=== PATIENT | female | born 1965 | race Caucasian/White ===

== ENCOUNTER 2016-07-14 15:54 | Emergency (ER) | payer MEDICAID ==
[2016-07-14 15:58] VITALS: BP 141/70
--- NOTE | 2016-07-14 16:27 | ER Document Report ---
HPI - HPI Pain Level: 5 Context: Patient is a 51-year-old female presents emergency Department complaining of sinus congestion and pressure for the past 7 days. Patient states she has a history of sinus infections and requiring sinus surgery. She is due to follow up with [facility] on July 21 to be evaluated for this. Patient states that she typically requires antibiotics because her sinuses are not able to drain very well on their own. She denies any fevers, chills, purulent drainage,. She does have pain to palpation over the bridge of her nose. - REPRODUCTIVE Reproductive: DENIES: : - DERM Skin Color: Normal Past Medical History - Social History Smoking Status: Former Smoker Family History: Reviewed & Not Pertinent, CAD, Malignancy Patient has suicidal ideation: No Patient has homicidal ideation: No - Past Medical History Cardiac Medical History: Reports: Hx Hypertension Denies: Hx Coronary Artery Disease, Hx Heart Attack Pulmonary Medical History: Reports: Hx Asthma, Hx Bronchitis, Hx Pneumonia - 20 yrs ago Denies: Hx COPD Neurological Medical History: Denies: Hx Cerebrovascular Accident, Hx Seizures Renal/ Medical History: Denies: Hx Peritoneal Dialysis GI Medical History: Reports: Hx Diverticulitis, Hx Hiatal Hernia Musculoskeltal Medical History: Denies Hx Arthritis Past Surgical History: Reports: Hx Abdominal Surgery, Hx Herniorrhaphy, Hx Orthopedic Surgery - L knee torn meniscus, metal plate left wrist, Hx Tubal Ligation - Immunizations Hx Diphtheria, Pertussis, Tetanus Vaccination: Yes Vertical Provider Document - CONSTITUTIONAL Agree With Documented VS: Yes Exam Limitations: No Limitations General Appearance: WD/WN, No Apparent Distress - INFECTION CONTROL TRAVEL OUTSIDE OF THE [place] IN LAST 30 DAYS: No - HEENT HEENT: Atraumatic, Normocephalic, PERRLA. negative: Pharyngeal Exudate, Pharyngeal Tenderness, Pharyngeal Erythema, Tympanic Membrane Red, Tympanic Membrane Bulging Notes: tenderness to palpation of the bridge of her nose and maxillary sinuses - NECK Neck: Normal Inspection. negative: Lymphadenopathy-Left, Lymphadenopathy-Right - RESPIRATORY Respiratory: Breath Sounds Normal, No Respiratory Distress, Chest Non-Tender. negative: Rales, Rhonchi, Wheezing O2 Sat by Pulse Oximetry: 93 - CARDIOVASCULAR Cardiovascular: Regular Rate, Regular Rhythm, No Murmur - NEURO Level of Consciousness: Awake, Alert, Appropriate Motor/Sensory: No Motor Deficit, No Sensory Deficit - DERM Integumentary: Warm, Dry, No Rash Course - Re-evaluation Re-evalutation: 07/14/16 17:34 Given patient's clinical history of sinus infections will discharge home with by mouth antibiotics and instructed to follow-up with ENT. Otherwise patient's hemoglobin stable, no acute distress and afebrile. - Vital Signs Vital signs: Temp Pulse Resp BP Pulse Ox 98.7 F 72 16 141/70 H 93 07/14/16 15:58 07/14/16 15:58 07/14/16 15:58 07/14/16 15:58 07/14/16 15:58 Discharge - Discharge Clinical Impression: Sinusitis Condition: Good Disposition: HOME, SELF-CARE Additional Instructions: [id number] medications: Mucinex DM Sinusitis You have sinusitis, an infection of the sinus cavities of the face. The sinuses are air-filled chambers which open into the inside of the nose. Bacteria and pus fill a sinus, causing pain, drainage, and fever. Sinusitis is treated with antibiotics. Often, expectorants (to thin the sinus mucous) or decongestants (to reduce swelling) are prescribed as well. Healing requires seven to 10 days. Avoid chemical fumes, pollens, dusts, and smoke (especially cigarette smoke ). Keep the air humidified in your bedroom and work area and take plenty of liquids by mouth. This condition can be serious if the infection spreads. If your symptoms worsen, or if you develop severe headache, high fever, stiff neck, or a rash, you must call the doctor or return for re-evaluation. Prescriptions: Amox Tr/Potassium Clavulanate [Augmentin 875-125 Tablet] 1 tab PO BID 7 Days Forms: Elevated Blood Pressure
[2016-07-14] MEDS ORDERED: AMOXICILLIN TR/POT CLAVULANATE 500-125 MG TAB PO ONE (16:28)
== END 2016-07-14 16:40 | disposition home or self-care (01) ==
LOC: ER 15:54
DX: J32.9 Chronic sinusitis, unspecified (principal); R09.81 Nasal congestion; I10 Essential (primary) hypertension; J45.909 Unspecified asthma, uncomplicated; Z87.891 Personal history of nicotine dependence
CPT/HCPCS: 99283; J3490

== ENCOUNTER → 2016-08-08 | Outpatient (CLI) | payer MEDICAID | LOC: RAD 11:51 | PROVIDERS: ATTEND Otolaryngology | DX: R51 Headache (principal) | CPT/HCPCS: 70486 ==

== ENCOUNTER 2016-11-13 10:16 | Day surgery (SDC) | payer MEDICAID ==
[2016-11-07 12:22] LABS: ABSOLUTE EOSINOPHILS # (AUTO) 0.1 10^3/uL (0.0-0.6); ABSOLUTE LYMPHOCYTES (AUTO) 2.4 10^3/uL (0.5-4.7); ABSOLUTE MONOCYTES (AUTO) 0.3 10^3/uL (0.1-1.4); ABSOLUTE NEUT (AUTO) 3.9 10^3/uL (1.7-8.2); BASOPHILS % (AUTO) 0.6 % (0-2); EOSINOPHILS % (AUTO) 1.7 % (0-6); HEMATOCRIT 44.6 % (36.0-47.0); HEMOGLOBIN 15.3 g/dL (12.0-15.5); HGB HCT DIFFERENCE 1.3; LYMPHOCYTES % (AUTO) 35.2 % (13-45); MEAN CORPUSCULAR HEMOGLOBIN 32.5 pg (27.0-33.4); MEAN CORPUSCULAR HGB CONC 34.3 g/dL (32.0-36.0); MEAN CORPUSCULAR VOLUME 95 fl (80-97); RED BLOOD COUNT 4.72 10^6/uL (3.72-5.28); SEGMENTED NEUTROPHILS % (AUTO) 57.5 % (42-78); WHITE BLOOD COUNT 6.7 10^3/uL (4.0-10.5)
[2016-11-07 12:40] LABS: APPEARANCE,URINE SLIGHTLY-CLOUDY; BILIRUBIN,URINE NEGATIVE (NEGATIVE); GLUCOSE, URINE NEGATIVE (NEGATIVE); KETONES,URINE NEGATIVE (NEGATIVE); LEUKOCYTE ESTERASE,URINE TRACE (NEGATIVE); NITRITE,URINE NEGATIVE (NEGATIVE); PROTEIN,URINE NEGATIVE (NEGATIVE); URINE SPECIFIC GRAVITY 1.013; UROBILINOGEN,URINE NEGATIVE mg/dL (<2.0)
[2016-11-07 12:40] LABS: ANION GAP 10 (5-19); BLOOD UREA NITROGEN 10 mg/dL (7-20); CARBON DIOXIDE 24 mmol/L (22-30); CHLORIDE 107 mmol/L (98-107); CREATININE RESULT 0.74 mg/dL (0.52-1.25); GLUCOSE 83 mg/dL (75-110); POTASSIUM 5.2 mmol/L (3.6-5.0); SODIUM 141.4 mmol/L (137-145)
--- NOTE | 2016-11-07 13:21 | RADIOLOGY REPORT (SQ) ---
EXAM DESCRIPTION: CHEST PA/LATERAL COMPLETED DATE/TIME: 11/07/2016 11:48 am REASON FOR STUDY: PRE OP COMPARISON: 01/11/2014 EXAM PARAMETERS: NUMBER OF VIEWS: two views TECHNIQUE: Digital Frontal and Lateral radiographic views of the chest acquired. RADIATION DOSE: NA LIMITATIONS: none FINDINGS: LUNGS AND PLEURA: No opacities, masses or pneumothorax. No pleural effusion. MEDIASTINUM AND HILAR STRUCTURES: No masses or contour abnormalities. HEART AND VASCULAR STRUCTURES: Heart normal size. No evidence for failure. BONES: No acute findings. HARDWARE: None in the chest. OTHER: No other significant finding. IMPRESSION: NO SIGNIFICANT RADIOGRAPHIC FINDING IN THE CHEST. TECHNICAL DOCUMENTATION: JOB ID: [id number] [employer]- All Rights Reserved
--- NOTE | 2016-11-07 17:40 | EKG REPORT ---
SEVERITY:- NORMAL ECG - SINUS RHYTHM : Confirmed by: Beena Artis MD 07-Nov-2016 17:39:46
[~2016-11-13 10:16] MED LIST: CEFAZOLIN SODIUM 2 GM in DEXTROSE 5%-WATER 100 ML IV PRN; RINGERS SOLUTION,LACTATED 1,000 ML IV PRN
[2016-11-13] MEDS ORDERED: LIDOCAINE 1% INJ-PF (10 MG/ML) 30 ML SDV ONE (10:33)
[2016-11-13] MEDS ORDERED: BUPIVACAINE HCL 0.5 % INJ/PF 30 ML SDV ONE (10:33)
[2016-11-13] MEDS ORDERED: FENTANYL CITRATE INJ/PF 100 MCG/2 ML AMPUL ONE (12:21)
[2016-11-13] MEDS ORDERED: PROPOFOL INJ 200 MG/20 ML VIAL IV ONE (12:21)
[2016-11-13] MEDS ORDERED: MIDAZOLAM 2 MG/2 ML INJ ONE (12:21)
[2016-11-13] MEDS ORDERED: FENTANYL CITRATE INJ/PF 100 MCG/2 ML AMPUL IV PRN ×3 (13:04)
[2016-11-13] MEDS ORDERED: OXYCODONE-ACETAMINOPHEN 5-325 MG TABLET PO PRN ×3 (13:04→14:46)
[2016-11-13] MEDS ORDERED: PROMETHAZINE HCL INJ 25 MG/1 ML VIAL IV PRN ×2 (13:04)
[2016-11-13] MEDS ORDERED: DIPHENHYDRAMINE HCL 50 MG/ML VIAL IV PRN (13:04)
[2016-11-13] MEDS ORDERED: MEPERIDINE HCL/PF INJ 25 MG/1 ML DISP.SYRIN IV PRN (13:04)
[2016-11-13] MEDS ORDERED: MORPHINE SULFATE 10 MG/ML INJ IV PRN ×2 (13:04→14:46)
[2016-11-13] MEDS: FENTANYL CITRATE INJ/PF 100 MCG/2 ML AMPUL ONE ×2 (14:13→14:30)
[2016-11-13] MEDS ORDERED: SUCCINYLCHOLINE CHLORIDE INJ 200 MG/10 ML VIAL ONE (14:14)
[2016-11-13] MEDS ORDERED: ONDANSETRON HCL INJ/PF 4 MG/2 ML SDV ONE (14:14)
[2016-11-13] MEDS ORDERED: DEXAMETHASONE SOD PHOSPHATE INJ 4 MG/1 ML VIAL ONE (14:14)
[2016-11-13] MEDS ORDERED: KETOROLAC TROMETHAMINE 60 MG/2 ML SDV ONE (14:14)
[2016-11-13] MEDS ORDERED: PROMETHAZINE HCL INJ 25 MG/1 ML VIAL ONE (14:36)
--- NOTE | 2016-11-13 14:45 | Operative Report ---
Operative Report PREOPERATIVE DIAGNOSIS: Painful Hardware Left Wrist w/ ORIF Distal Radius. Subcutaneous Mass Left Elbow POSTOPERATIVE DIAGNOSIS: Same OPERATION: #1. Removal of deep hardware left wrist (3 screws). #2 Wrist flexor tenolysis FCR/FPL/FDP. #3 Excision subcutaneous mass left elbow 15 mm x 15 mm SURGEON: CECILIA OSORIO ANESTHESIA: GA TISSUE REMOVED OR ALTERED: Mass Left Elbow COMPLICATIONS: Equipment for complete hardware removal not available. ESTIMATED BLOOD LOSS: Minimal PROCEDURE: Indication for above procedure: 51-year-old female who sustained a distal radius fracture in 2010 necessitating open reduction internal fixation. Patient had been doing well until the past few months she began having pain and discomfort at the site of her surgical treatment. At that point we discussed treatment options including observation versus operative intervention. Furthermore patient developed a facial mass on the ipsilateral side at her elbow and thus we discussed performing concomitant hardware removal with flexor tenolysis and excision left elbow mass. Risks and benefits were explained to the patient she verbalized understanding consented for the procedure. Procedure detail: Procedure In Detail: Patient was seen and evaluated in the preoperative holding area. The LEFT upper extremity was initialized and marked. Patient received 2g of Ancef IV for bacterial prophylaxis. Patient was taken back to the operative room where transferred to the operative table and placed under general anesthesia. Once they were adequately anesthetized a nonsterile tourniquet was placed on the upper extremity. A surgical team debriefing was performed ensuring all instrumentation was available, the surgical procedure was discussed with possible concerns reviewed. The upper extremity was prepped with chlorhexidine and alcohol and draped in a sterile fashion. A timeout was done identifying correct patient, procedure and extremity everyone in attendance agree with this and verbalized no concerns. The extremity was exsanguinated the tourniquet was inflated to 250 mmHg. Longitudinal skin incision was made over the olecranon process blunt dissection was performed isolating the mass. The mass was removed along with the underlying olecranon bursa. There was no extension deep into the surrounding fascia. The peripheral vasculature was coagulated bipolar cautery. Wound was then copiously irrigated with normal saline. Skin was closed with interrupted 3 -0 nylon suture. Patient's previous surgical skin incision was made blunt dissection was performed to the soft tissues. Radial artery was identified. The FCR tendon sheath was identified and retracted in a ulnar direction. Median nerve was identified along with the palmar cutaneous branch of the median nerve. Tenolysis of the FPL was performed. The plate was then identified there was evidence of notable irritation of the underlying FDP tendons along the ulnar aspect of the plate were identified. There is significant synovitis and possible impending rupture of the FDP tendons. The proximal screws were then removed with ease. Unfortunately with attempted removal of the distal screws I was unable to use the available screwdrivers for removal. Given location adjacent to the median nerve and flexor tendons I did not feel extraction device will be a safe option and instead elected to proceed with irrigation and closure patient will require repeat return to the OR for definitive plate removal and may require tendon transfer. Subcutaneous tissues were closed with interrupted 3-0 Monocryl suture. Skin was closed with running horizontal mattress 4-0 nylon suture. 20 cc of 0.5% Marcaine without epinephrine was injected for postoperative pain control. Wound was dressed with Xeroform 4 x 4's and a soft dressing. Sponge counts, instrument counts, needle counts counts were correct. Patient was then awoken from anesthesia. Transferred from the operating room table to the operating room stretcher. There was no intraoperative complications patient tolerated procedure well stable to PACU. Postoperative plan: Patient will require return to the operating room for definitive hardware removal and possible adjunct procedure to the FDP tendons.
--- NOTE | 2016-11-13 14:46 | PDOC DISCHARGE SUMMARY ---
Discharge Summary (SDC) - Discharge Final Diagnosis: Painful hardware left wrist Mass left elbow Date of Surgery: 11/13/16 Discharge Date: 11/13/16 Condition: Good Treatment or Instructions: Schedule Follow Up w/ Dr. Catrachito Bernstein @ [facility] to be seen in 10-14 days or as scheduled [place]: [place]: [place]: May remove dressing on postop day #3, keep incision covered and dry. Ice and elevate May begin finger range of motion attempting to make full fist. Stool softener of choice when on pain medication. Prescriptions: Oxycodone HCl/Acetaminophen [Percocet 5-325 mg Tablet] 1 - 2 tab PO ASDIR PRN # 30 tablet PRN Reason: Discharge Diet: As Tolerated Respiratory Treatments at Home: Deep Breathing/Coughing Discharge Activity: No Lifting Over 10 Pounds, No Lifting/Push/Pulling Report the Following to Your Physician Immediately: Fever over 101 Degrees, Unusual Bleeding, Redness, Swelling, Warmth, Increased Soreness
[2016-11-13 16:38] VITALS: BP 148/91
== END 2016-11-13 16:30 | disposition home or self-care (01) ==
LOC: OROUT 10:16
PROVIDERS: ATTEND Orthopaedic Surgery
PROC: 0JBH0ZZ Excision of Left Lower Arm Subcutaneous Tissue and Fascia, Open Approach (ICD-10-PCS; 2016-11-13)
PROC: 0RPP04Z Removal of Internal Fixation Device from Left Wrist Joint, Open Approach (ICD-10-PCS; principal; 2016-11-13 13:30)
PROC: 0LN60ZZ Release Left Lower Arm and Wrist Tendon, Open Approach (ICD-10-PCS; 2016-11-13 13:30)
DX: T84.398A Other mechanical complication of other bone devices, implants and grafts, initial encounter (principal); Y83.8 Other surgical procedures as the cause of abnormal reaction of the patient, or of later complication, without mention of misadventure at the time of the procedure; M79.644 Pain in right finger(s); M65.839 Other synovitis and tenosynovitis, unspecified forearm; D17.9 Benign lipomatous neoplasm, unspecified
CPT/HCPCS: 93005; 36415 ×2; 84132; 85025; 81025; 80048; 81001; 88304 ×2; 71020; 93010; 20680; 25295; 24075; J2250; J0690; J1100; J1885; J3010; J2550; J0330; J2405; J2704; 1830; J3490

== ENCOUNTER 2016-11-20 05:29 | Day surgery (SDC) | payer MEDICAID ==
[~2016-11-20 05:29] MED LIST changes: +CEFAZOLIN 2 GM/D5W RTU 2 GM/50 ML RTUPB IV PRN; -CEFAZOLIN SODIUM 2 GM in DEXTROSE 5%-WATER 100 ML IV PRN; -RINGERS SOLUTION,LACTATED 1,000 ML IV PRN
[2016-11-20] MEDS ORDERED: LIDOCAINE 1% INJ-PF (10 MG/ML) 30 ML SDV ONE (06:42)
[2016-11-20] MEDS ORDERED: BUPIVACAINE HCL 0.5 % INJ/PF 30 ML SDV ONE (06:42)
[2016-11-20] MEDS ORDERED: FENTANYL CITRATE INJ/PF 250 MCG/5 ML AMPULE ONE (07:09)
[2016-11-20] MEDS ORDERED: MIDAZOLAM 2 MG/2 ML INJ ONE (07:09)
[2016-11-20] MEDS ORDERED: ACETAMINOPHEN 100 ML IV ONE (07:10)
[2016-11-20] MEDS ORDERED: IBUPROFEN INJ 800 MG/8 ML VIAL IV ONE (07:10)
[2016-11-20] MEDS ORDERED: DEXMEDETOMIDINE INJ 80 MCG/20 ML VIAL IV ONE (07:10)
[2016-11-20] MEDS ORDERED: PROPOFOL INJ 200 MG/20 ML VIAL IV ONE (07:10)
[2016-11-20] MEDS ORDERED: ONDANSETRON HCL INJ/PF 4 MG/2 ML SDV IV PRN ×2 (07:27→08:49)
[2016-11-20] MEDS ORDERED: MEPERIDINE HCL/PF INJ 25 MG/1 ML DISP.SYRIN IV PRN (07:27)
[2016-11-20] MEDS ORDERED: PROMETHAZINE HCL INJ 25 MG/1 ML VIAL IV PRN ×2 (07:27)
[2016-11-20] MEDS ORDERED: DIPHENHYDRAMINE HCL 50 MG/ML VIAL IV PRN (07:27)
[2016-11-20] MEDS ORDERED: MORPHINE SULFATE 10 MG/ML INJ IV PRN (07:27)
[2016-11-20] MEDS ORDERED: FENTANYL CITRATE INJ/PF 100 MCG/2 ML AMPUL IV PRN ×3 (07:27)
[2016-11-20] MEDS ORDERED: KETAMINE HCL INJ 500 MG/10 ML VIAL ONE (07:37)
[2016-11-20] MEDS ORDERED: SCOPOLAMINE HYDROBROMIDE 1.5 MG PATCH.TD72 ONE (07:38)
[2016-11-20] MEDS ORDERED: ALBUTEROL SULFATE HFA (90 MCG/PUFF) 200 PUFF/8.5 GM MDI IH ONE (07:43)
[2016-11-20] MEDS ORDERED: OXYCODONE-ACETAMINOPHEN 5-325 MG TABLET PO PRN (08:49)
[2016-11-20] MEDS ORDERED: HYDROMORPHONE HCL INJ/PF 2 MG/ML AMPULE IV PRN (08:49)
--- NOTE | 2016-11-20 08:50 | PDOC DISCHARGE SUMMARY ---
Discharge Summary (SDC) - Discharge Final Diagnosis: Painful Hardware Left Wrist Date of Surgery: 11/20/16 Discharge Date: 11/20/16 Condition: Good Treatment or Instructions: Schedule Follow Up w/ Dr. Catrachito Bernstein @ [facility] to be seen in 10-14 days or as scheduled [place]: [place]: [place]: May remove dressing on postop day #3, keep incision covered and dry. Ice and elevate May begin finger range of motion attempting to make full fist. Stool softener of choice when on pain medication. Prescriptions: Oxycodone HCl/Acetaminophen [Percocet 7.5-325 mg Tablet] 1 tab PO ASDIR PRN #45 tab PRN Reason: Discharge Diet: As Tolerated Respiratory Treatments at Home: Deep Breathing/Coughing Discharge Activity: No Lifting Over 10 Pounds, No Lifting/Push/Pulling Report the Following to Your Physician Immediately: Fever over 101 Degrees, Unusual Bleeding, Redness, Swelling, Warmth, Increased Soreness
--- NOTE | 2016-11-20 08:53 | Operative Report ---
Operative Report DATE OF SURGERY: 11/20/16 PREOPERATIVE DIAGNOSIS: Painful Hardware Left Wrist w/ FDP Tenosynovitis POSTOPERATIVE DIAGNOSIS: Same OPERATION: Removal Hardware Left Wrist. FDP Tenosynovectomy SURGEON: CECILIA OSORIO ANESTHESIA: GA COMPLICATIONS: None ESTIMATED BLOOD LOSS: Minimal PROCEDURE: Indication for above procedure: 51-year-old female underwent open reduction internal fixation of her left distal radius fracture 7 years ago. Patient healed appropriately but developed inflammation of her flexor tendon. Last week she underwent excision of a epidermoid inclusion cyst of the elbow and attempted hardware removal of the left wrist. Given the fact the appropriate hardware for removal of the plate was not available decision was made to proceed with closure of the wound and return to the operating room for definitive removal as opposed to removal of the plate utilizing extraction device which could cause further soft tissue damage. The preoperative holding area left upper extremity was initialized and marked. There was some mild erythema along the proximal aspect of the wound but no gross drainage was appreciated. Patient had notable ecchymosis throughout the extremity. At that point we once again discussed including treatment options including observation versus operative intervention given the fact the plate was causing fairly significant tendon irritation I felt it was imperative to proceed with operative intervention. Patient verbalized understanding consented for the procedure. Procedure In Detail: Patient was seen and evaluated in the preoperative holding area. The LEFT upper extremity was initialized and marked. Patient received 2g of Ancef IV for bacterial prophylaxis. Patient was taken back to the operative room where transferred to the operative table and placed under general anesthesia. Once they were adequately anesthetized a nonsterile tourniquet was placed on the upper extremity. A surgical team debriefing was performed ensuring all instrumentation was available, the surgical procedure was discussed with possible concerns reviewed. The upper extremity was prepped with chlorhexidine and alcohol and draped in a sterile fashion. A timeout was done identifying correct patient, procedure and extremity everyone in attendance agree with this and verbalized no concerns. The extremity was exsanguinated the tourniquet was inflated to 250 mmHg. Previous skin incision was utilized and sutures removed. Blunt dissection was performed down to the distal radius plate sweeping the FPL in a ulnar direction. The plate was once again visualized the distal screws were removed. There is notable bone regrowth on the proximal aspect of the plate the stent was successfully removed. The plate was then carefully elevated and removed in its entirety. The previous screw holes were then curetted removing any fibrous tissue. The wound was copiously irrigated with normal saline. I then explored the flexor tendons once again. Although there was notable irritation of the flexor tendon there is no evidence of discontinuity which coincided with patient preoperative examination. Given this fact I do not feel tendon transfer was necessary at this juncture and I feel with plate removal the tendons will likely heal adequately without requiring repeat operative intervention. The wound was then copiously irrigated with normal saline. The tourniquet was deflated. Pressure was held for 2 minutes. Any peripheral vasculature was coagulated bipolar cautery. Radial artery was visualized and patent. There is no remnant pronator quadratus to allow for repair. Subcutaneous tissues were closed with 4-0 Monocryl suture. Skin was closed with a interrupted 4-0 nylon vertical mattress suture. 20 cc of 0.5% Marcaine with epinephrine was injected for postoperative pain control. Wound was dressed with Xeroform 4 x 4's and a soft dressing. Sponge counts, instrument counts, needle counts counts were correct. Patient was then awoken from anesthesia. Transferred from the operating room table to the operating room stretcher. There was no intraoperative complications patient tolerated procedure well stable to PACU. Postoperative plan: Patient followed in the office in 10 days at which point we will proceed with suture removal. Patient will begin range of motion exercises immediately.
--- NOTE | 2016-11-20 10:05 | RADIOLOGY REPORT (SQ) ---
EXAM DESCRIPTION: NO CHG FLUORO; WRIST LEFT 2 VIEWS COMPLETED DATE/TIME: 11/20/2016 8:59 am REASON FOR STUDY: HARDWARE REMOVAL LEFT WRIST ASSISTED WITH FLUORO IN OR T84.398A [facility] COMPL OF OTH BONE DEVICES, IMPLANTS AND GRAFTS COMPARISON: Plain films 10/04/2010 left wrist FLUOROSCOPY TIME: 5 seconds Two digital C-arm saved to PACS. TECHNIQUE: Intra-operative images acquired during surgical procedure to evaluate progress. NUMBER OF IMAGES: TWO digital C-arm images LIMITATIONS: None. FINDINGS: Intra procedural imaging and fluoro during removal of hardware from a distal left radius h ealed fracture. Please see the operative report for further details IMPRESSION: Intra procedural imaging and fluoro COMMENT: Quality ID [id number]: Final reports for procedures using fluoroscopy that document radiation exp osure indices, or exposure time and number of fluorographic images (if radiation exposure indices are not available) Please consult full operative report of the attending physician for description of the procedure. TECHNICAL DOCUMENTATION: JOB ID: [id number] [employer]- All Rights Reserved
--- NOTE | 2016-11-20 10:05 | RADIOLOGY REPORT (SQ) ---
EXAM DESCRIPTION: NO CHG FLUORO; WRIST LEFT 2 VIEWS COMPLETED DATE/TIME: 11/20/2016 8:59 am REASON FOR STUDY: HARDWARE REMOVAL LEFT WRIST ASSISTED WITH FLUORO IN OR T84.398A [facility] COMPL OF OTH BONE DEVICES, IMPLANTS AND GRAFTS COMPARISON: Plain films 10/04/2010 left wrist FLUOROSCOPY TIME: 5 seconds Two digital C-arm saved to PACS. TECHNIQUE: Intra-operative images acquired during surgical procedure to evaluate progress. NUMBER OF IMAGES: TWO digital C-arm images LIMITATIONS: None. FINDINGS: Intra procedural imaging and fluoro during removal of hardware from a distal left radius h ealed fracture. Please see the operative report for further details IMPRESSION: Intra procedural imaging and fluoro COMMENT: Quality ID [id number]: Final reports for procedures using fluoroscopy that document radiation exp osure indices, or exposure time and number of fluorographic images (if radiation exposure indices are not available) Please consult full operative report of the attending physician for description of the procedure. TECHNICAL DOCUMENTATION: JOB ID: [id number] [employer]- All Rights Reserved
[2016-11-20 10:58] VITALS: BP 123/77
[2016-11-20] MEDS ORDERED: ONDANSETRON HCL INJ/PF 4 MG/2 ML SDV ONE (12:20)
[2016-11-20] MEDS ORDERED: LIDOCAINE 2% INJ-PF (20 MG/ML) 10 ML AMPUL ONE (12:20)
[2016-11-20] MEDS ORDERED: METOCLOPRAMIDE HCL INJ/PF 10 MG/2 ML SDV ONE (12:20)
[2016-11-20] MEDS ORDERED: DEXAMETHASONE SOD PHOSPHATE INJ 4 MG/1 ML VIAL ONE (12:20)
[2016-11-20] MEDS ORDERED: SUCCINYLCHOLINE CHLORIDE INJ 200 MG/10 ML VIAL ONE (12:20)
== END 2016-11-20 10:50 | disposition home or self-care (01) ==
LOC: OROUT 05:29
PROVIDERS: ATTEND Orthopaedic Surgery
PROC: 0RPP04Z Removal of Internal Fixation Device from Left Wrist Joint, Open Approach (ICD-10-PCS; 2016-11-20)
PROC: 0LB60ZZ Excision of Left Lower Arm and Wrist Tendon, Open Approach (ICD-10-PCS; principal; 2016-11-20 07:45)
DX: Z47.2 Encounter for removal of internal fixation device (principal); T84.398A Other mechanical complication of other bone devices, implants and grafts, initial encounter; Y83.8 Other surgical procedures as the cause of abnormal reaction of the patient, or of later complication, without mention of misadventure at the time of the procedure; F17.210 Nicotine dependence, cigarettes, uncomplicated; M79.644 Pain in right finger(s); M65.832 Other synovitis and tenosynovitis, left forearm; D17.9 Benign lipomatous neoplasm, unspecified
CPT/HCPCS: 81025; 73100; 25115; 20680; J2250; J1100; J3010; J3490 ×5; J2765; J0330; J2405; J2704; J0690; J0131; J1741; 01830

== ENCOUNTER 2017-06-08 08:49 | Emergency (ER) | payer MEDICAID ==
[2017-06-08] MEDS ORDERED: DIPH/PERTUSS(ACELL)/TETANUS VAC/PF 0.5 ML SYR (>=10YO) IM ONE (09:27)
[2017-06-08] MEDS ORDERED: KETOROLAC TROMETHAMINE 60 MG/2 ML SDV IM ONE (09:27)
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
[2017-06-08 11:27] VITALS: BP 138/74
== END 2017-06-08 11:26 | disposition home or self-care (01) ==
LOC: ER 08:49
DX: S63.614A Unspecified sprain of right ring finger, initial encounter (principal); M54.5 Low back pain; Y04.8XXA Assault by other bodily force, initial encounter; S80.812A Abrasion, left lower leg, initial encounter; Y04.0XXA Assault by unarmed brawl or fight, initial encounter; M47.9 Spondylosis, unspecified; F17.200 Nicotine dependence, unspecified, uncomplicated; I10 Essential (primary) hypertension; J45.909 Unspecified asthma, uncomplicated; Z23 Encounter for immunization
CPT/HCPCS: 99284; 96372; 90471; 73140; 72110; 90715; J1885

== ENCOUNTER 2018-04-15 09:42 | Emergency (ER) | payer MEDICAID ==
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
--- NOTE | 2018-04-15 10:45 | ER Document Report ---
ED General - General Chief Complaint: Hip Pain Stated Complaint: HIP PAIN Time Seen by Provider: 04/15/18 09:59 Notes: Patient is a 53-year-old female who presents to the emergency department with complaint of hip pain that started on Saturday. She reports the pain is worse when she is sitting and is alleviated with standing. She reports that she has difficulty ambulating due to the pain. She denies any bowel incontinence and reports normal urinary function. She denies any trauma or injury to the area. Denies any fever, chills, nausea or vomiting. TRAVEL OUTSIDE OF THE [place] IN LAST 30 DAYS: No - Related Data Allergies/Adverse Reactions: No Known Allergies Allergy (Verified 11/06/16 10:51) Past Medical History - General Information source: Patient - Social History Smoking Status: Current Every Day Smoker Chew tobacco use (# tins/day): No Frequency of alcohol use: Occasional Drug Abuse: None Family History: Reviewed & Not Pertinent, CAD, Malignancy Patient has suicidal ideation: No Patient has homicidal ideation: No - Past Medical History Cardiac Medical History: Reports: Hx Hypertension Denies: Hx Coronary Artery Disease, Hx Heart Attack Pulmonary Medical History: Reports: Hx Asthma - ALBUTEROL, Hx Bronchitis, Hx Pneumonia - 20 yrs ago Denies: Hx COPD Neurological Medical History: Denies: Hx Cerebrovascular Accident, Hx Seizures Renal/ Medical History: Denies: Hx Peritoneal Dialysis GI Medical History: Reports: Hx Diverticulitis, Hx Hiatal Hernia Musculoskeletal Medical History: Denies Hx Arthritis Past Surgical History: Reports: Hx Abdominal Surgery, Hx Herniorrhaphy, Hx Orthopedic Surgery - L knee torn meniscus, metal plate left wrist, Hx Tubal Ligation - Immunizations Hx Diphtheria, Pertussis, Tetanus Vaccination: Yes Review of Systems - Review of Systems Constitutional: No symptoms reported EENT: No symptoms reported Cardiovascular: No symptoms reported Respiratory: No symptoms reported Gastrointestinal: No symptoms reported Genitourinary: No symptoms reported Female Genitourinary: No symptoms reported Musculoskeletal: See HPI Neurological/Psychological: No symptoms reported Physical Exam - Vital signs Vitals: Temp Pulse Resp BP Pulse Ox 97.5 F 72 18 123/91 H 97 04/15/18 09:49 04/15/18 09:49 04/15/18 09:49 04/15/18 09:49 04/15/18 09:49 - Notes Notes: PHYSICAL EXAMINATION: GENERAL: Well-appearing, well-nourished and in no acute distress. HEAD: Atraumatic, normocephalic. EYES: Pupils equal round and reactive to light, extraocular movements intact, conjunctiva are normal. ENT: Nares patent, oropharynx clear without exudates. Moist mucous membranes. NECK: Normal range of motion, supple without lymphadenopathy LUNGS: Breath sounds clear to auscultation bilaterally and equal. No wheezes rales or rhonchi. HEART: Regular rate and rhythm without murmurs ABDOMEN: Soft, nontender, nondistended abdomen. No guarding, no rebound. No masses appreciated. Female : deferred Musculoskeletal: Normal range of motion, no pitting or edema. No cyanosis. Tenderness to palpation of along lumbar paraspinous muscles bilaterally. No point tenderness noted over the cervical, thoracic or lumbar spine. NEUROLOGICAL: Cranial nerves grossly intact. Normal speech. Normal sensory, motor exams PSYCH: Normal mood, normal affect. SKIN: Warm, Dry, normal turgor, no rashes or lesions noted. Course - Re-evaluation Re-evalutation: X-rays are negative for any acute findings to include fracture or dislocation. There are some what appears to be degenerative changes on the x-rays, this was discussed with the patient and patient reports she will be following up with her primary care provider regarding these. A copy of the radiology report was provided. Patient reports significant improvement of her pain after medications administered here in the emergency department. Patient will be discharged home in stable condition. - Vital Signs Vital signs: Temp Pulse Resp BP Pulse Ox 98.0 F 59 L 16 126/64 H 100 04/15/18 12:08 04/15/18 12:08 04/15/18 12:08 04/15/18 12:08 04/15/18 12:08 Discharge - Discharge Clinical Impression: Hip pain, Low back pain Condition: Stable Disposition: HOME, SELF-CARE Additional Instructions: LOW BACK PAIN: Three out of every four people will have an episode of disabling back pain during their lifetime. Most commonly the pain is due to straining of the muscles and ligaments in the low back. Usual treatment includes: (1) Rest on a firm surface. Avoid lying on your stomach. (2) Ice pack the painful area. After a few days, gentle heat may be used intermittently to relax the area, or ice packs can be continued. (3) Medication may be needed -- muscle relaxers and antiinflammatory medicines are commonly used. (4) As the back improves, exercises are prescribed to strengthen the back and abdominal muscles. Your doctor will advise you on the proper care for your back at each stage in your recovery. You may be better in a few days -- or healing may take several weeks. If new symptoms of a "herniated disc" (radiation of pain, numbness, or tingling down the back of the leg or weakness in the leg) occur, you should be re-examined. Further testing may be necessary. PAIN MEDICATION INJECTION: You have received an injection of a pain medication. You should experience significant pain relief within 45 minutes. If this injection was a narcotic -- it will impair your judgement, slow your reaction time and make you sleepy (as well as relieve your pain). Narcotics also can cause nausea. You should not drive, work with machinery, or perform any task requiring mental alertness until all effects of the medication are gone -- six to eight hours. Do not take any alcohol, or sedatives, and do not take any other medication without checking with your physician. ORAL NARCOTIC MEDICATION: You have been given a prescription for pain control. This medication is a narcotic. It's best taken with food, as nausea can result if taken on an empty stomach. Don't operate machinery or drive within six hours of taking this medication. Do not combine this medicine with alcohol, or with any medication which can cause sedation (such as cold tablets or sleeping pills) unless you get permission from the physician. Narcotics tend to cause constipation. If possible, drink plenty of fluids and eat a diet high in fiber and fruits. Please be aware that prescription narcotics also have the potential for abuse. People become addicted to these medications because of the general sense of wellbeing that they induce. This feeling along with a significant reduction in tension, anxiety, and aggression provides a stimulating seductive quality to these drugs. Once your pain is under control, we encourage you to discard your unused narcotics. MUSCLE RELAXERS: Muscle relaxing medications are usually prescribed for acute muscle spasm or injury to the neck and back. They are often combined with antiinflammatory pain medication for increased relief. You may stop the muscle relaxer when the pain and stiffness have improved. Start the medication again if spasms recur. Muscle relaxers may cause drowsiness, especially with the first dose. Do not operate machinery or drive while under the effects of the medication. Most muscle relaxers last up to 24 hours. Do not combine the medication with alcohol. ICE PACKS: Apply ice packs frequently against the painful area. Many different schedules are recommended, such as "20 minutes on, 20 minutes off" or "one hour ice, two hours rest." If you need to work, you may need to go longer between ice treatments. You should plan to have the area ice packed AT LEAST one fourth of the time. The ice should be applied over the wrap, tape, or splint, or over a layer of cloth -- not directly against the skin. Some ice bags have a built-in cloth and can be put directly on the skin. WARM PACKS: After approximately two days, apply gentle heat (such as a heating pad or hot water bottle) for about 20 to 30 minutes about every two hours -- at least four times daily. Warmth and elevation will help you make a more rapid recovery, and will ease the pain considerably. Do not use HOT heat, and never apply heat for longer than 30 minutes. The continuous heat can invisibly damage skin and muscles -- even when no burn is seen on the surface. Damaged muscles can make you MORE sore. FOLLOW-UP CARE: If you have been referred to a physician for follow-up care, call the physicians office for an appointment as you were instructed or within the next two days. If you experience worsening or a significant change in your symptoms, notify the physician immediately or return to the Emergency Department at any time for re-evaluation. The pain you are experiencing is most likely due to sciatica. Please take the medications as prescribed. Follow-up with Dr. Ramirez as we discussed. If your pain does not improve you may need to consider seeing him for either physical therapy or an MRI. Return to the emergency department if you experience worsening symptoms such as worsening pain, bowel incontinence, you are unable to urinate or any other symptom that is concerning to you. Prescriptions: Ketorolac Tromethamine [Toradol 10 mg Tablet] 10 mg PO Q6HP PRN #20 tablet PRN Reason: Cyclobenzaprine HCl [Flexeril 10 mg Tablet] 10 mg PO TIDP PRN #15 tab PRN Reason: Lidocaine [Lidoderm 5% (700 mg) Transdermal Patch] 1 patch TP DAILY #30 adh..patch Referrals: RHIANNA RAMIREZ MD [Primary Care Provider] - Follow up as needed
[2018-04-15] MEDS ORDERED: LIDOCAINE 5% (700 MG) TRANSDERMAL ADH..PATCH TP ONE (11:04)
[2018-04-15] MEDS ORDERED: DIAZEPAM INJ 10 MG/2 ML DISP.SYRIN IM ONE (11:05)
[2018-04-15] MEDS ORDERED: KETOROLAC TROMETHAMINE 60 MG/2 ML SDV IM ONE (11:05)
[2018-04-15 12:10] VITALS: BP 126/64
== END 2018-04-15 12:08 | disposition home or self-care (01) ==
LOC: ER 09:42
DX: M25.552 Pain in left hip (principal); M54.5 Low back pain; F17.200 Nicotine dependence, unspecified, uncomplicated; I10 Essential (primary) hypertension; J45.909 Unspecified asthma, uncomplicated
CPT/HCPCS: 99283; 96372; 73502; J3360; J1885; J3490

== ENCOUNTER 2018-06-23 07:52 | Emergency (ER) | payer MEDICAID ==
--- NOTE | 2018-06-23 09:45 | RADIOLOGY REPORT (SQ) ---
EXAM DESCRIPTION: KNEE RIGHT 4 VIEWS COMPLETED DATE/TIME: 06/23/2018 9:25 am REASON FOR STUDY: pain and swelling after excessive use COMPARISON: None. NUMBER OF VIEWS: Four views. TECHNIQUE: AP, lateral, and both oblique radiographic images acquired of the right knee. LIMITATIONS: None. FINDINGS: MINERALIZATION: Normal. BONES: No acute fracture or dislocation. Joint space narrowing in the medial compartment and patello femoral compartment with small osteophytes. No worrisome bone lesions. JOINT: Suprapatellar joint effusion. SOFT TISSUES: No soft tissue swelling. No radio-opaque foreign body. OTHER: No other significant finding. IMPRESSION: DEGENERATIVE OSTEOARTHRITIS IN THE MEDIAL COMPARTMENT AND PATELLOFEMORAL COMPARTMENT. J OINT EFFUSION. NO ACUTE BONY FINDINGS. TECHNICAL DOCUMENTATION: JOB ID: [id number]- All Rights Reserved Reading location - IP/workstation name: [email or web address]
[2018-06-23] MEDS ORDERED: PREDNISONE 20 MG TABLET PO ONE (10:05)
[2018-06-23 10:23] VITALS: BP 142/88
--- NOTE | 2018-06-23 14:48 | ER Document Report ---
Entered by FIDE STEVENS SCRIBE 06/23/18 0912 Acting as scribe for:CINDY WAITE MD ED Extremity Problem, Lower - General Chief Complaint: Knee Pain Stated Complaint: RIGHT KNEE PAIN Time Seen by Provider: 06/23/18 08:59 Primary Care Provider: RHIANNA RAMIREZ MD [Primary Care Provider] - Follow up as needed Mode of Arrival: Ambulatory Information source: Patient Notes: Patient is a 53 year old female presenting to the emergency department complaining of right knee pain and swelling onset last night. Patient states she has had an increase in strenuous activity this past week further stating she has been moving furniture. She states she heard a loud pop coming from her right knee last night. She states proceeded to place ice on her knee and elevated it. She states this morning the swelling has somewhat improved. She reports taking an anti-inflammatory over the past week although she is unsure of the name. TRAVEL OUTSIDE OF THE [place] IN LAST 30 DAYS: No - Related Data Allergies/Adverse Reactions: No Known Allergies Allergy (Verified 11/06/16 10:51) Past Medical History - General Information source: Patient - Social History Smoking Status: Current Every Day Smoker Cigarette use (# per day): Yes Chew tobacco use (# tins/day): No Smoking Education Provided: No Frequency of alcohol use: None Family History: CAD, Malignancy - Past Medical History Cardiac Medical History: Reports: Hx Hypertension Pulmonary Medical History: Reports: Hx Asthma - ALBUTEROL, Hx Bronchitis, Hx Pneumonia - 20 yrs ago GI Medical History: Reports: Hx Diverticulitis, Hx Hiatal Hernia Past Surgical History: Reports: Hx Abdominal Surgery, Hx Herniorrhaphy, Hx Orthopedic Surgery - L knee torn meniscus, metal plate left wrist, Hx Tubal Ligation - Immunizations Hx Diphtheria, Pertussis, Tetanus Vaccination: Yes Review of Systems - Review of Systems Constitutional: No symptoms reported EENT: No symptoms reported Cardiovascular: No symptoms reported Respiratory: No symptoms reported Gastrointestinal: No symptoms reported Genitourinary: No symptoms reported Female Genitourinary: No symptoms reported Musculoskeletal: See HPI Skin: No symptoms reported Hematologic/Lymphatic: No symptoms reported Neurological/Psychological: No symptoms reported -: Yes All other systems reviewed and negative Physical Exam - Vital signs Vitals: Temp Pulse Resp BP Pulse Ox 97.9 F 66 18 133/79 H 95 06/23/18 08:01 06/23/18 08:01 06/23/18 08:01 06/23/18 08:01 06/23/18 08:01 - Notes Notes: GENERAL: Alert, interacts well. No acute distress. HEAD: Normocephalic, atraumatic. EYES: Pupils equal, round, and reactive to light. Extraocular movements intact. ENT: Oral mucosa moist, tongue midline. NECK: Full range of motion. Supple. Trachea midline. LUNGS:Coarse breath sounds. Frequent cough. No respiratory distress. HEART: Regular rate and rhythm. No murmurs, gallops, or rubs. ABDOMEN: Soft, non-tender. Non-distended. EXTREMITIES: Moves all 4 extremities spontaneously. Right knee is enlarged. Superior lateral corner of the right patella it tender to palpation. There is some prepattellar swelling. Not warm to palpation. NEUROLOGICAL: Alert and oriented x3. Normal speech. PSYCH: Normal affect, normal mood. SKIN: Warm, dry, normal turgor. No rashes or lesions noted. Course - Re-evaluation Re-evalutation: 06/23/18 10:26 The knee immobilizer was placed on the right knee by the PCT. It fits well, it provides good support and comfort for the patient. - Vital Signs Vital signs: Temp Pulse Resp BP Pulse Ox 98.0 F 63 16 142/88 H 97 06/23/18 10:19 06/23/18 10:19 06/23/18 10:19 06/23/18 10:19 06/23/18 10:19 - Diagnostic Test Radiology reviewed: Image reviewed, Reports reviewed - Right knee shows degenerative osteoarthritis in the medial compartment and patellofemoral compartments with joint effusion. Discharge - Discharge Clinical Impression: Osteoarthritis of right knee Qualifiers: Osteoarthritis type: unspecified Qualified Code(s): M17.11 - Unilateral primary osteoarthritis, right knee Knee joint effusion Qualifiers: Laterality: right Qualified Code(s): M25.461 - Effusion, right knee Condition: Stable Disposition: HOME, SELF-CARE Additional Instructions: Arthritis Your symptoms are due to arthritis. Arthritis is an inflammation of the joints. There are many types -- osteoarthritis (due to "wear and tear"), auto- immmune arthritis (such as rheumatoid, lupus, Lin's, and others), and crystal-induced arthritis (such as gout and pseudogout). The physician's examination, combined with laboratory tests, will determine the cause of your arthritis. All types of arthritis are treated with antiinflammatory medications. Other medication may be required for special types of arthritis, or if your problem does not respond to the antiinflammatory medicine. Local warmth may be helpful. Move the involved joints through the full range of motion daily. Mild exercise is usually still possible for most persons with arthritis (ask your physician). Swimming provides good exercise without damaging the joints. Contact the physician if you are worsening in any way. Your history, physical, and x-rays show that you suffer from osteoarthritis of the right knee. The pain and swelling is caused by excessive use of the joint over the last several days. You should take the medication as prescribed--start the prednisone tomorrow. Use the knee immobilizer to support the knee and prevent bending for the next several days. Limit weightbearing as much as possible. Elevate the knee and use ice packs. Follow-up with Dr. Ramirez later this week for recheck. RETURN TO THE EMERGENCY ROOM IF ANY NEW OR WORSENING SYMPTOMS. Prescriptions: Prednisone [Deltasone 10 mg Tablet] 10 mg PO ASDIR PRN #21 tablet PRN Reason: Referrals: RHIANNA RAMIREZ MD [Primary Care Provider] - Follow up as needed I personally performed the services described in the documentation, reviewed and edited the documentation which was dictated to the scribe in my presence, and it accurately records my words and actions.
== END 2018-06-23 10:27 | disposition home or self-care (01) ==
LOC: ER 07:52
DX: M17.11 Unilateral primary osteoarthritis, right knee (principal); M25.461 Effusion, right knee; M25.561 Pain in right knee; M79.89 Other specified soft tissue disorders; X50.0XXA Overexertion from strenuous movement or load, initial encounter; F17.210 Nicotine dependence, cigarettes, uncomplicated; I10 Essential (primary) hypertension; J45.909 Unspecified asthma, uncomplicated
CPT/HCPCS: 99283; 73564; L1830; J7512

== ENCOUNTER → 2018-09-02 | Outpatient (CLI) | payer MEDICAID ==
--- NOTE | 2018-09-02 15:59 | RADIOLOGY REPORT (SQ) ---
EXAM DESCRIPTION: CERV SP 3 VIEW OR LESS COMPLETED DATE/TIME: 09/02/2018 3:40 pm REASON FOR STUDY: M54.2 CERVICALGIA M54.2 CERVICALGIA COMPARISON: None. NUMBER OF VIEWS: Three views of the cervical spine. TECHNIQUE: AP, lateral, and sacral radiographic images acquired of the cervical spine. LIMITATIONS: None. FINDINGS: MINERALIZATION: Normal. SEGMENTATION: Normal. No transitional anatomy. ALIGNMENT: Normal. VERTEBRAE: Maintained height. No fracture or worrisome bone lesion. DISCS: Multilevel disc space narrowing with osteophytes. POSTERIOR ELEMENTS: Pedicles and facets are intact. No pars defect or posterior arch defects. Facet arthropathy is present. HARDWARE: None in the spine. PARASPINAL SOFT TISSUES: Normal. OTHER: No other significant finding. IMPRESSION: Mild multilevel spondylosis. No acute findings in the cervical spine. TECHNICAL DOCUMENTATION: JOB ID: [id number] [employer]- All Rights Reserved Reading location - IP/workstation name: [email or web address]
== END ==
LOC: RAD 15:13
PROVIDERS: ATTEND Internal Medicine
DX: M54.2 Cervicalgia (principal); M47.892 Other spondylosis, cervical region
CPT/HCPCS: 72040

== ENCOUNTER 2018-10-31 09:41 | Emergency (ER) | payer MEDICAID ==
[2018-10-31 09:46] VITALS: BP 140/86
[2018-10-31] MEDS ORDERED: DEXAMETHASONE SOD PHOS INJ 10 MG/1 ML VIAL IM ONE (09:52)
[2018-10-31] MEDS ORDERED: KETOROLAC TROMETHAMINE 60 MG/2 ML SDV IM ONE (09:52)
[2018-10-31] MEDS ORDERED: METHOCARBAMOL 750 MG TABLET PO ONE (09:53)
--- NOTE | 2018-10-31 09:55 | ER Document Report ---
HPI - HPI Time Seen by Provider: 10/31/18 09:45 Pain Level: 4 Notes: Patient is a 53-year-old female presented to the emergency department with low back pain that radiates into her right hip. She reports history of chronic back pain that states she sees orthopedics for. She states this pain has been going on for approximately 5 days now. She denies any saddle anesthesia, bowel incontinence or urinary retention. She has not had any fever. She reports she has had a history of sciatica in the past and she feels that this is similar. - CONSTITUTIONAL Constitutional: DENIES: Fever, Chills - EENT EENT: DENIES: Sore Throat, Ear Pain, Eye problems - NEURO Neurology: DENIES: Headache, Weakness, Vision blurred, Dizzinesss / Vertigo - CARDIOVASCULAR Cardiovascular: DENIES: Chest pain - RESPIRATORY Respiratory: DENIES: Trouble Breathing, Coughing - GASTROINTESTINAL Gastrointestinal: DENIES: Abdominal Pain, Black / Bloody Stools - URINARY Urinary: DENIES: Dysuria, Urgency, Frequency - REPRODUCTIVE Reproductive: DENIES: : - MUSCULOSKELETAL Musculoskeletal: REPORTS: Extremity pain - right hip pain Past Medical History - General Information source: Patient - Social History Smoking Status: Current Every Day Smoker Chew tobacco use (# tins/day): No Frequency of alcohol use: Rare Drug Abuse: None Family History: CAD, Malignancy Patient has suicidal ideation: No Patient has homicidal ideation: No - Past Medical History Cardiac Medical History: Reports: Hx Hypertension Denies: Hx Coronary Artery Disease, Hx Heart Attack Pulmonary Medical History: Reports: Hx Asthma - ALBUTEROL, Hx Bronchitis, Hx Pneumonia - 20 yrs ago Denies: Hx COPD Neurological Medical History: Denies: Hx Cerebrovascular Accident, Hx Seizures Renal/ Medical History: Denies: Hx Peritoneal Dialysis GI Medical History: Reports: Hx Diverticulitis, Hx Hiatal Hernia Musculoskeletal Medical History: Denies Hx Arthritis Past Surgical History: Reports: Hx Abdominal Surgery, Hx Herniorrhaphy, Hx Orthopedic Surgery - L knee torn meniscus, metal plate left wrist, Hx Tubal Ligation - Immunizations Hx Diphtheria, Pertussis, Tetanus Vaccination: Yes Vertical Provider Document - CONSTITUTIONAL Notes: PHYSICAL EXAMINATION: GENERAL: Well-appearing, well-nourished and in no acute distress. HEAD: Atraumatic, normocephalic. EYES: Pupils equal round extraocular movements intact, conjunctiva are normal. ENT: Nares patent NECK: Normal range of motion LUNGS: No respiratory distress Musculoskeletal: Normal range of motion, tenderness to palpation along right lumbar paraspinous muscles with extension into right buttocks. No vertebral tenderness, step-off or deformity. No rash. NEUROLOGICAL: Normal speech, normal gait. PSYCH: Normal mood, normal affect. SKIN: Warm, Dry, normal turgor, no rashes or lesions noted. - INFECTION CONTROL TRAVEL OUTSIDE OF THE [place] IN LAST 30 DAYS: No Course - Re-evaluation Re-evalutation: Presentation of a well appearing patient complaining of acute on chronic back pain with sciatica. No rapid progression of symptoms, systemic symptoms including fevers, chills, weight loss, history of recent bacterial infection, bilateral symptoms, numbness, weakness, difficulty walking, urinary retention or bowel incontinence, personal history of cancer, immunosuppression, diabetes, known AAA, or history of IV drug use. Exam is without point tenderness over vertebral bodies, pulsatile abdominal mass, and patient has symmetric and intact lower extremity strength, sensation, and reflexes without clonus. - Vital Signs Vital signs: Temp Pulse Resp BP Pulse Ox 97.7 F 84 18 140/86 H 95 10/31/18 09:45 10/31/18 09:45 10/31/18 09:45 10/31/18 09:45 10/31/18 09:45 Discharge - Discharge Clinical Impression: Sciatica Qualifiers: Laterality: right Qualified Code(s): M54.31 - Sciatica, right side Condition: Stable Disposition: HOME, SELF-CARE Additional Instructions: Sciatica Your symptoms suggest "sciatica." The pain of sciatica typically radiates down the leg. Numbness in the foot or calf may also occur. Sciatica is caused by irritation of the sciatic nerve or its branches. The irritation can be due to a herniated disk in the spine, swelling and inflammation in the muscles surrounding the sciatic nerve, or direct injury of the nerve itself. Most cases of sciatica will resolve with medical treatment. Bed rest is usually recommended initially. Surgery is only necessary when the condition will not improve with rest and antiinflammatory medication. Muscle relaxers are often given if muscle soreness is present. A CAT scan of the back may be performed if a herniated disk is suspected. Re-examination is necessary if you develop increasing numbness, localized weakness in the foot or ankle, or if the pain does not respond to rest. Please take all medications as prescribed. Call orthopedics to schedule follow-up appointment. Return to the emergency department if you experience weakness, numbness, tingling in either of her extremities, develop a fever, urinary retention or bowel incontinence. Prescriptions: Lidocaine [Lidoderm 5% (700 mg) Transdermal Patch] 1 patch TP DAILY #30 adh..patch Methocarbamol [Robaxin 750 mg Tablet] 750 mg PO Q4 #40 tablet Referrals: [facility] [Provider Group] - Follow up as needed
== END 2018-10-31 10:03 | disposition home or self-care (01) ==
LOC: ER 09:41
DX: M54.31 Sciatica, right side (principal); G89.29 Other chronic pain; M54.9 Dorsalgia, unspecified; F17.200 Nicotine dependence, unspecified, uncomplicated; J45.909 Unspecified asthma, uncomplicated
CPT/HCPCS: 99283; 96372; J1885; J3490; J1100

== ENCOUNTER 2019-03-08 17:44 | Emergency (ER) | payer MEDICAID ==
[2019-03-08] MEDS ORDERED: MORPHINE SULFATE 10 MG/ML INJ IV ONE ×2 (18:07→19:25)
[2019-03-08] MEDS ORDERED: KETOROLAC TROMETHAMINE INJ/PF 30 MG/1 ML SDV IV ONE (18:07)
--- NOTE | 2019-03-08 18:15 | ER Document Report ---
ED Medical Screen (RME) - General Chief Complaint: Fall Injury Stated Complaint: FALL/RIB PAIN Time Seen by Provider: 03/08/19 18:04 Primary Care Provider: RHIANNA RAMIREZ MD [Primary Care Provider] - Follow up as needed Mode of Arrival: Ambulatory Information source: Patient Notes: Patient is a 54-year-old female presenting to the emergency department chief com plaint of left lateral rib pain. Patient reports she fell off a ladder last night that was a few feet in the air and landed onto some hard boxes. Patient reports pain with movement or with deep breaths. Exam: Lung sounds clear and equal bilaterally. I have greeted and performed a rapid initial assessment of this patient. A comprehensive ED assessment and evaluation of the patient, analysis of test results and completion of the medical decision making process will be conducted by additional ED providers. I have specifically instructed the patient or family members with the patient to immediately return to any nursing staff should anything change in the patient's condition or with their chief complaint. This medical record was dictated with voice recognizing software. There may be grammatical, syntax errors that are unintended. TRAVEL OUTSIDE OF THE [place] IN LAST 30 DAYS: No - Related Data Allergies/Adverse Reactions: No Known Allergies Allergy (Verified 10/31/18 09:43) Past Medical History - Social History Frequency of alcohol use: None Drug Abuse: None - Past Medical History Cardiac Medical History: Reports: Hx Hypertension Denies: Hx Coronary Artery Disease, Hx Heart Attack Pulmonary Medical History: Reports: Hx Asthma - ALBUTEROL, Hx Bronchitis, Hx Pneumonia - 20 yrs ago Denies: Hx COPD Neurological Medical History: Denies: Hx Cerebrovascular Accident, Hx Seizures Renal/ Medical History: Denies: Hx Peritoneal Dialysis GI Medical History: Reports: Hx Diverticulitis, Hx Hiatal Hernia Musculoskeltal Medical History: Denies Hx Arthritis Past Surgical History: Reports: Hx Abdominal Surgery, Hx Herniorrhaphy, Hx Orthopedic Surgery - L knee torn meniscus, metal plate left wrist, Hx Tubal Ligation - Immunizations Hx Diphtheria, Pertussis, Tetanus Vaccination: Yes Physical Exam - Vital signs Vitals: Temp Pulse Resp BP Pulse Ox 98 F 91 18 183/98 H 96 03/08/19 18:03 03/08/19 18:03 03/08/19 18:03 03/08/19 18:03 03/08/19 18:03 Course - Vital Signs Vital signs: Temp Pulse Resp BP Pulse Ox 98 F 91 18 183/98 H 96 03/08/19 18:03 03/08/19 18:03 03/08/19 18:03 03/08/19 18:03 03/08/19 18:03 Doctor's Discharge - Discharge Referrals: RHIANNA RAMIREZ MD [Primary Care Provider] - Follow up as needed
--- NOTE | 2019-03-08 18:43 | RADIOLOGY REPORT (SQ) ---
EXAM DESCRIPTION: RIBS LEFT W/PA CHEST COMPLETED DATE/TIME: 03/08/2019 6:27 pm REASON FOR STUDY: fall, L lateral rib pain COMPARISON: None. TECHNIQUE: Frontal view of the chest and additional views of the left ribs acquired. NUMBER OF VIEWS: Four view. LIMITATIONS: None. FINDINGS: FRONTAL CXR: No pneumothorax. No pleural effusion. No atelectasis or infiltrates. RIBS: No displaced rib fractures. No lytic or blastic bony lesions. OTHER: No other significant finding. IMPRESSION: NO PNEUMOTHORAX. NO DISPLACED RIB FRACTURES. COMMENT: SITE OF TRAUMA/COMPLAINT MARKED/STAMP COMPLETED: NO. TECHNICAL DOCUMENTATION: JOB ID: [id number] [place]-72 2010 [employer]- All Rights Reserved Reading location - IP/workstation name: [email or web address]
--- NOTE | 2019-03-08 19:07 | ER Document Report ---
HPI - HPI Patient complains to provider of: Left-sided rib pain, left upper quad abdominal pain Time Seen by Provider: 03/08/19 18:04 Onset: Yesterday Quality of pain: Achy Pain Level: 5 Context: This 54-year-old female history of COPD presents emergency department with complaints of left lateral rib pain. She reports she fell off a stepstool that was approximately 2 feet last night and landed on some hard boxes. Reports pain with movement and deep breaths to her left-sided ribs. Also complains of left upper quad abdominal pain. Patient has ecchymosis to her left flank. Reports she is voiding without problems.. Denies fever vomiting diarrhea. Denies past medical history of injury to her ribs. Associated Symptoms: None Exacerbated by: Coughing, Deep breathing Relieved by: Denies Similar symptoms previously: No Recently seen / treated by doctor: No - REPRODUCTIVE Reproductive: DENIES: : Past Medical History - General Information source: Patient - Social History Smoking Status: Current Every Day Smoker Cigarette use (# per day): Yes Frequency of alcohol use: None Drug Abuse: None Lives with: Family Family History: CAD, Malignancy Patient has suicidal ideation: No Patient has homicidal ideation: No - Past Medical History Cardiac Medical History: Reports: Hx Hypertension Denies: Hx Coronary Artery Disease, Hx Heart Attack Pulmonary Medical History: Reports: Hx Asthma - ALBUTEROL, Hx Bronchitis, Hx COPD, Hx Pneumonia - 20 yrs ago Neurological Medical History: Denies: Hx Cerebrovascular Accident, Hx Seizures Renal/ Medical History: Denies: Hx Peritoneal Dialysis GI Medical History: Reports: Hx Diverticulitis, Hx Hiatal Hernia Musculoskeletal Medical History: Reports Hx Arthritis Psychiatric Medical History: Reports: Hx Depression - PTSD, Anxiety Past Surgical History: Reports: Hx Abdominal Surgery, Hx Herniorrhaphy, Hx Orthopedic Surgery - L knee torn meniscus, metal plate left wrist, Hx Tubal Ligation - Immunizations Hx Diphtheria, Pertussis, Tetanus Vaccination: Yes Vertical Provider Document - CONSTITUTIONAL Agree With Documented VS: Yes Exam Limitations: No Limitations General Appearance: WD/WN, No Apparent Distress - Nontoxic looking - INFECTION CONTROL TRAVEL OUTSIDE OF THE [place] IN LAST 30 DAYS: No - HEENT HEENT: Atraumatic, Normocephalic - NECK Neck: Normal Inspection, Supple. negative: Lymphadenopathy-Left, Lymphadenopathy-Right - RESPIRATORY Respiratory: Breath Sounds Normal, No Respiratory Distress, Other - Left anterior ribs tender to palpate no ecchymosis respiratory rate even and unlabored - CARDIOVASCULAR Cardiovascular: Regular Rate, Regular Rhythm - GI/ABDOMEN Gastrointestinal: Abdomen Soft, Abdomen Tender - Left upper quad tender to palpate, Normal Bowel Sounds - BACK Back: CVA Tenderness-Left - ecchymosis noted - MUSCULOSKELETAL/EXTREMETIES Musculoskeletal/Extremeties: MAEW, FROM, Non-Tender - NEURO Level of Consciousness: Awake, Alert, Appropriate Motor/Sensory: No Motor Deficit - DERM Integumentary: Warm, Dry Adult Front & Back Diagram: 1 - Ecchymosis noted Course - Re-evaluation Re-evalutation: 03/08/19 19:05 54-year-old female presents emergency department with left-sided flank pain left rib pain after she fell off a stepladder onto some boxes last night. Denies fever vomiting diarrhea. Denies with pain with void. Patient does have left- sided ecchymosis to her flank. Chest x-ray was negative for rib fracture. Due to severe tenderness to the left upper quad area we will do labs in CT CT with some edema to the left flank, UA, labs unremarkable, patient voiding and ambulating without problems. Patient instructed on negative chest x-ray no rib fracture, CT report labs.. She reports she is feeling much better. She was instructed on Phoenix for acute pain Motrin otherwise. She was instructed on the importance of follow-up with Dr. Ramirez within the next few days. She was also instructed to return here for fever concerns worsening symptoms. She verbalized understanding to all instructions 03/08/19 19:56 03/08/19 19:56 MCV 97 fl (80-97) 03/08/19 19:56 MCH 32.4 pg (27.0-33.4) 03/08/19 19:56 MCHC 33.4 g/dL (32.0-36.0) 03/08/19 19:56 RDW 13.5 % (11.5-14.0) 03/08/19 19:56 Seg Neutrophils % 62.9 % (42-78) 03/08/19 19:56 Chloride 109 mmol/L (98-107) H 03/08/19 19:56 Carbon Dioxide 25 mmol/L (22-30) 03/08/19 19:56 Anion Gap 9 (5-19) 03/08/19 19:56 Est GFR ( Amer) > 60 (>60) 03/08/19 19:56 Glucose 85 mg/dL (75-110) 03/08/19 19:56 Calcium 9.3 mg/dL (8.4-10.2) 03/08/19 19:56 Total Bilirubin 0.3 mg/dL (0.2-1.3) 03/08/19 19:56 AST 20 U/L (14-36) 03/08/19 19:56 Alkaline Phosphatase 53 U/L (38-126) 03/08/19 19:56 Total Protein 6.9 g/dL (6.3-8.2) 03/08/19 19:56 Albumin 4.2 g/dL (3.5-5.0) 03/08/19 19:56 Urine Color YELLOW 03/08/19 20:05 Urine Appearance CLEAR 03/08/19 20:05 Urine pH 8.0 (5.0-9.0) 03/08/19 20:05 Ur Specific [place] 1.025 03/08/19 20:05 Urine Protein NEGATIVE mg/dL (NEGATIVE) 03/08/19 20:05 Urine Glucose (UA) NEGATIVE mg/dL (NEGATIVE) 03/08/19 20:05 Urine Ketones NEGATIVE mg/dL (NEGATIVE) 03/08/19 20:05 Urine Blood NEGATIVE (NEGATIVE) 03/08/19 20:05 Urine Nitrite NEGATIVE (NEGATIVE) 03/08/19 20:05 Ur Leukocyte Esterase NEGATIVE (NEGATIVE) 03/08/19 20:05 Urine WBC (Auto) 0 /HPF 03/08/19 20:05 Urine RBC (Auto) 2 /HPF 03/08/19 20:05 03/08/19 22:11 Ribs w/Chest X-Ray 03/08/19 18:06 IMPRESSION: NO PNEUMOTHORAX. NO DISPLACED RIB FRACTURES. Abdomen/Pelvis CT 03/08/19 19:21 IMPRESSION: 1. Also cutaneous edema in the left flank, but no significant focal hematoma. 2. No solid abdominal organ injury 3. No acute intraperitoneal findings. 4. No acute fractures. 03/08/19 23:51 Dictation of this chart was performed using voice recognition software; therefore, there may be some unintended grammatical errors. - Vital Signs Vital signs: Temp Pulse Resp BP Pulse Ox 98 F 91 18 183/98 H 96 03/08/19 18:03 03/08/19 18:03 03/08/19 18:03 03/08/19 18:03 03/08/19 18:03 - Laboratory Result Diagrams: 03/08/19 19:56 03/08/19 19:56 - Diagnostic Test Radiology reviewed: Image reviewed, Reports reviewed Discharge - Discharge Clinical Impression: Rib injury Fall Qualifiers: Encounter type: initial encounter Qualified Code(s): W19.XXXA - Unspecified fall, initial encounter Condition: Stable Disposition: HOME, SELF-CARE Instructions: Oral Narcotic Medication ([facility]), Pain Medication Injection ([facility]), Rib Injuries and Fractures ([facility]) Additional Instructions: *You have been evaluated for a rib injury, flank pain post fall *Your x-ray and CT were negative for any acute injury *Cough and deep breathe at least once an hour as discussed *Follow up with your primary care provider within 1 week for recheck *Take Motrin as indicated for pain, take Phoenix as indicated for acute pain that Motrin is not taking care of. *Return to ED for worsening condition, changes, needs Forms: Elevated Blood Pressure, Return to Work Referrals: RHIANNA RAMIREZ MD [Primary Care Provider] - Follow up in 3-5 days
[2019-03-08 20:07] LABS: ABSOLUTE EOSINOPHILS # (AUTO) 0.1 10^3/uL (0.0-0.6); ABSOLUTE LYMPHOCYTES (AUTO) 2.7 10^3/uL (0.5-4.7); ABSOLUTE MONOCYTES (AUTO) 0.4 10^3/uL (0.1-1.4); ABSOLUTE NEUT (AUTO) 5.6 10^3/uL (1.7-8.2); BASOPHILS % (AUTO) 0.5 % (0-2); EOSINOPHILS % (AUTO) 1.7 % (0-6); MEAN CORPUSCULAR HEMOGLOBIN 32.4 pg (27.0-33.4); MEAN CORPUSCULAR HGB CONC 33.4 g/dL (32.0-36.0); MEAN CORPUSCULAR VOLUME 97 fl (80-97); MONOCYTES % (AUTO) 4.9 % (3-13); PLATELET COUNT 249 10^3/uL (150-450); RED BLOOD COUNT 4.34 10^6/uL (3.72-5.28); RED CELL DISTRIBUTION WIDTH 13.5 % (11.5-14.0); SEGMENTED NEUTROPHILS % (AUTO) 62.9 % (42-78); TOTAL CELLS COUNTED % (AUTO) 100 %; WHITE BLOOD COUNT 8.8 10^3/uL (4.0-10.5)
[2019-03-08 20:25] LABS: ALBUMIN 4.2 g/dL (3.5-5.0); ALKALINE PHOSPHATASE 53 U/L (38-126); ANION GAP 9 (5-19); ASPARTATE AMINO TRANSFERASE 20 U/L (14-36); BILIRUBIN,DIRECT 0.2 mg/dL (0.0-0.4); BILIRUBIN,TOTAL 0.3 mg/dL (0.2-1.3); BLOOD UREA NITROGEN 18 mg/dL (7-20); CALCIUM 9.3 mg/dL (8.4-10.2); CARBON DIOXIDE 25 mmol/L (22-30); CHLORIDE 109 mmol/L (98-107); GLUCOSE 85 mg/dL (75-110); POTASSIUM 4.3 mmol/L (3.6-5.0); TOTAL PROTEIN 6.9 g/dL (6.3-8.2)
[2019-03-08 20:29] LABS: APPEARANCE,URINE CLEAR; BILIRUBIN,URINE NEGATIVE (NEGATIVE); COLOR,URINE YELLOW; GLUCOSE, URINE NEGATIVE (NEGATIVE); KETONES,URINE NEGATIVE (NEGATIVE); LEUKOCYTE ESTERASE,URINE NEGATIVE (NEGATIVE); NITRITE,URINE NEGATIVE (NEGATIVE); PROTEIN,URINE NEGATIVE (NEGATIVE); URINE SPECIFIC GRAVITY 1.025; UROBILINOGEN,URINE NEGATIVE mg/dL (<2.0)
--- NOTE | 2019-03-08 22:10 | RADIOLOGY REPORT (SQ) ---
EXAM DESCRIPTION: RadLex: CT ABDOMEN PELVIS WITH IV CONTRAST CLINICAL HISTORY: 54 years Female; luq PAIN POST FALL TECHNIQUE: CT of the abdomen and pelvis using intravenous contrast. All CT scans at this facility use dose modulation, iterative reconstruction, and/or weight based dosing when appropriate to reduce radiation dose to as low as reasonably achievable. COMPARISON: CT 12/04/2013 FINDINGS: Minimal dependent atelectasis in the posterior left lower lobe. Right breast implant is partially visualized. Abdomen: Liver:No focal lesions. No intrahepatic ductal distention. Gallbladder:Nondistended Pancreas:Within normal limits Spleen:Within normal limits Right kidney:No hydronephrosis. No focal lesion. Left kidney:No hydronephrosis. No focal lesion. Adrenal glands:Within normal limits Vascular structures: Scattered aortic calcifications. No aneurysm or dissection. No major branch occlusion. No retroperitoneal hematoma. Pelvis: Small bowel:No significant distention. Appendix:Within normal limits Colon:No distention or acute pericolonic edema. No free intraperitoneal fluid or air. Bones: No acute bone findings. Bladder: Unremarkable. There is mild subcutaneous edema in the left flank, but no significant focal hematoma. There is degenerative facet arthropathy and disc disease in the lower lumbar spine. No acute fracture or subluxation. IMPRESSION: 1. Also cutaneous edema in the left flank, but no significant focal hematoma. 2. No solid abdominal organ injury 3. No acute intraperitoneal findings. 4. No acute fractures.
[2019-03-08] MEDS ORDERED: HYDROCODONE/ACETAMINOPHEN 5-325 MG (6 TAB/ER DISP) PO PRN (22:12)
[2019-03-08 22:40] VITALS: BP 166/77
== END 2019-03-08 22:40 | disposition home or self-care (01) ==
LOC: ER 17:44
DX: S21.102A Unspecified open wound of left front wall of thorax without penetration into thoracic cavity, initial encounter (principal); R07.81 Pleurodynia; R10.12 Left upper quadrant pain; W17.89XA Other fall from one level to another, initial encounter; J44.9 Chronic obstructive pulmonary disease, unspecified; F17.210 Nicotine dependence, cigarettes, uncomplicated; I10 Essential (primary) hypertension; Z98.51 Tubal ligation status
CPT/HCPCS: 96376; 99284; 96374; 96375; 36415; 85025; 80053; 81001; 71101; 74177; J1885; J2270

== ENCOUNTER → 2019-07-23 | Outpatient (CLI) | payer MEDICAID ==
--- NOTE | 2019-07-23 12:36 | RADIOLOGY REPORT (SQ) ---
EXAM DESCRIPTION: CHEST 2 VIEWS IMAGES COMPLETED DATE/TIME: 07/23/2019 12:20 pm REASON FOR STUDY: PAIN IN JOINT, SHOULDER REGION COMPARISON: 01/11/2014. EXAM PARAMETERS: NUMBER OF VIEWS: two views TECHNIQUE: Digital Frontal and Lateral radiographic views of the chest acquired. RADIATION DOSE: NA LIMITATIONS: none FINDINGS: LUNGS AND PLEURA: No opacities, masses or pneumothorax. No pleural effusion. MEDIASTINUM AND HILAR STRUCTURES: No masses or contour abnormalities. HEART AND VASCULAR STRUCTURES: Heart normal size. No evidence for failure. BONES: No acute findings. HARDWARE: None in the chest. OTHER: No other significant finding. IMPRESSION: NO ACUTE RADIOGRAPHIC FINDING IN THE CHEST. TECHNICAL DOCUMENTATION: JOB ID: [id number] 2010 [employer]- All Rights Reserved Reading location - IP/workstation name: [email or web address]
--- NOTE | 2019-07-23 12:37 | RADIOLOGY REPORT (SQ) ---
EXAM DESCRIPTION: CLAVICLE RIGHT IMAGES COMPLETED DATE/TIME: 07/23/2019 12:20 pm REASON FOR STUDY: PAIN IN JOINT, SHOULDER COMPARISON: None. NUMBER OF VIEWS: Two views. TECHNIQUE: Frontal and angled images were acquired of the right clavicle. LIMITATIONS: None. FINDINGS: MINERALIZATION: Normal. BONES: No acute fracture or dislocation. No worrisome bone lesions. SOFT TISSUES: No obvious swelling or foreign body. OTHER: No other significant finding. IMPRESSION: NEGATIVE STUDY OF THE RIGHT CLAVICLE. NO RADIOGRAPHIC EVIDENCE OF ACUTE INJURY. TECHNICAL DOCUMENTATION: JOB ID: [id number] 2010 [employer]- All Rights Reserved Reading location - IP/workstation name: [email or web address]
== END ==
LOC: RAD 12:03
PROVIDERS: ATTEND Internal Medicine
DX: M25.511 Pain in right shoulder (principal)
CPT/HCPCS: 71046

== ENCOUNTER 2019-08-20 11:35 | Emergency (ER) | payer MEDICAID ==
[2019-08-20] MEDS ORDERED: MORPHINE SULFATE 10 MG/ML INJ IV ONE ×2 (11:50→13:32)
[2019-08-20] MEDS ORDERED: ONDANSETRON HCL INJ/PF 4 MG/2 ML SDV IV ONE ×2 (11:50→13:32)
--- NOTE | 2019-08-20 11:52 | ER Document Report ---
ED GI/ - General Chief Complaint: Abdominal Pain Stated Complaint: ABDOMINAL PAIN Time Seen by Provider: 08/20/19 11:44 Primary Care Provider: RHIANNA RAMIREZ MD [Primary Care Provider] - Follow up as needed Notes: CHIEF COMPLAINT: Abdominal pain HPI: 54-year-old female with history of COPD and diverticulitis presenting for left lower quadrant lower abdominal pain that began somewhat last night but more progressive today with nausea vomiting. No fever. Patient states "this is just like when I had diverticulitis before". No diarrhea. ROS: See HPI - all other systems were reviewed and are otherwise negative Constitutional: no fever Eyes: no drainage, no blurred vision ENT: no runny nose, no sore throat Cardiovascular: no chest pain Resp: no SOB, no cough GI: + vomiting, no diarrhea, + abdominal pain : no dysuria Integumentary: no rash Allergy: no hives Musculoskeletal: no extremity pain or swelling Neurological: no numbness/tingling, no weakness MEDICATIONS: I agree with the patient medications as charted by the RN. ALLERGIES: I agree with the allergies as charted by the RN. PAST MEDICAL HISTORY/PAST SURGICAL HISTORY: Reviewed and agree as charted by RN. SOCIAL HISTORY: Reviewed and agree as charted by RN. FAMILY HISTORY: No significant familial comorbid conditions directly related to patient complaint EXAM: Reviewed vital signs as charted by RN. CONSTITUTIONAL: Alert and oriented and responds appropriately to questions. Well-appearing; well-nourished, moderate distress secondary to pain HEAD: Normocephalic; atraumatic EYES: PERRL; Conjunctivae clear, sclerae non-icteric ENT: normal nose; no rhinorrhea; moist mucous membranes; pharynx without lesions noted, no uvula edema or deviation, no tonsillar hypertrophy, phonation normal NECK: Supple without meningismus; non-tender; no cervical lymphadenopathy, no masses CARD: RRR; no murmurs, no clicks, no rubs, no gallops; symmetric distal pulses RESP: Normal chest excursion without splinting or tachypnea; breath sounds clear and equal bilaterally; no wheezes, no rhonchi, no rales, pulse oximetry 96% on room air not hypoxic ABD/GI: Normal bowel sounds; non-distended; soft, generalized lower abdominal tenderness on palpation more focal over the suprapubic left lower quadrant region, somewhat difficult exam secondary to patient cooperation and discomfort, no rebound, no guarding; no palpable organomegaly or masses. BACK: The back appears normal and is non-tender to palpation, there is no CVA tenderness EXT: Normal ROM in all joints; non-tender to palpation; no cyanosis, no effusions, no edema SKIN: Normal color for age and race; warm; dry; good turgor; no acute lesions noted NEURO: Moves all extremities equally; Motor and sensory function intact PSYCH: The patient's mood and manner are appropriate. Grooming and personal hygiene are appropriate. MDM: 54-year-old female with lower abdominal pain that she feels is similar to diverticulitis that she had several years ago. Will obtain screening labs, plan for CT to evaluate for diverticulitis. Symptoms only began last night, less likely to have an abscess given the short timeframe TRAVEL OUTSIDE OF THE [place] IN LAST 30 DAYS: No - Related Data Allergies/Adverse Reactions: No Known Allergies Allergy (Verified 10/31/18 09:43) Past Medical History - Social History Smoking Status: Unknown if Ever Smoked Family History: CAD, Malignancy - Past Medical History Cardiac Medical History: Reports: Hx Hypertension Denies: Hx Coronary Artery Disease, Hx Heart Attack Pulmonary Medical History: Reports: Hx Asthma - ALBUTEROL, Hx Bronchitis, Hx COPD, Hx Pneumonia - 20 yrs ago Neurological Medical History: Denies: Hx Cerebrovascular Accident, Hx Seizures Renal/ Medical History: Denies: Hx Peritoneal Dialysis GI Medical History: Reports: Hx Diverticulitis, Hx Hiatal Hernia Musculoskeletal Medical History: Reports Hx Arthritis Psychiatric Medical History: Reports: Hx Depression - PTSD, Anxiety Past Surgical History: Reports: Hx Abdominal Surgery, Hx Herniorrhaphy, Hx O rthopedic Surgery - L knee torn meniscus, metal plate left wrist, Hx Tubal Ligation - Immunizations Hx Diphtheria, Pertussis, Tetanus Vaccination: Yes Physical Exam - Vital signs Vitals: Pulse Resp BP Pulse Ox 113 H 22 H 157/93 H 98 08/20/19 11:39 08/20/19 11:39 08/20/19 11:39 08/20/19 11:39 Course - Re-evaluation Re-evalutation: 08/20/19 12:40 Patient's calcium level 12.2. Will hydrate patient with normal saline. 08/20/19 15:02 CT imaging does not show acute emergent abnormalities. I discussed this at length with the patient. She will follow-up with her primary care provider by tomorrow. I will place the patient on a short course of Bentyl for abdominal spasm with strict return precautions. Will give patient precautions regarding her calcium level as well she may have this rechecked through her PCP - Vital Signs Vital signs: Temp Pulse Resp BP Pulse Ox 98.8 F 98 22 H 157/93 H 99 08/20/19 11:49 08/20/19 11:40 08/20/19 11:40 08/20/19 11:39 08/20/19 11:40 - Laboratory Result Diagrams: 08/20/19 11:56 08/20/19 11:56 Laboratory results interpreted by me: 08/20/19 08/20/19 08/20/19 11:56 11:56 12:22 WBC 15.0 H RBC 5.43 H Hgb 17.4 H Hct 50.6 H Lymph % (Auto) 9.0 L [place] % (Auto) 2.1 L Absolute Neuts (auto) 13.2 H Seg Neutrophils % 88.0 H Sodium 136.8 L Carbon Dioxide 20 L Glucose 154 H Calcium 12.2 H* Total Protein 8.5 H Albumin 5.3 H Urine Protein 30 H Urine Ketones TRACE H Urine Bilirubin MODERATE H Urine Urobilinogen 4.0 H Urine Ascorbic Acid 40 H Discharge - Discharge Clinical Impression: Abdominal pain, left lower quadrant, Hypercalcemia Condition: Stable Disposition: HOME, SELF-CARE Additional Instructions: Your imaging studies today show diverticulosis without diverticulitis. Take the Bentyl for abdominal spasm and pain. Follow-up with your primary care provider by tomorrow for reevaluation of your symptoms. It was noted today that your calcium levels were slightly elevated you can have this rechecked through your primary care provider. Avoid excess calcium in your diet, make sure that you are hydrating well at home as this level can go up when you are dehydrated. Prescriptions: Dicyclomine HCl [Bentyl 20 mg Tablet] 20 mg PO Q6H PRN #20 tablet PRN Reason: Referrals: RHIANNA RAMIREZ MD [Primary Care Provider] - Follow up as needed
[2019-08-20 12:05] LABS: ABSOLUTE BASOPHILS # (AUTO) 0.1 10^3/uL (0.0-0.2); ABSOLUTE LYMPHOCYTES (AUTO) 1.3 10^3/uL (0.5-4.7); ABSOLUTE MONOCYTES (AUTO) 0.3 10^3/uL (0.1-1.4); ABSOLUTE NEUT (AUTO) 13.2 10^3/uL (1.7-8.2); BASOPHILS % (AUTO) 0.6 % (0-2); EOSINOPHILS % (AUTO) 0.3 % (0-6); HEMATOCRIT 50.6 % (36.0-47.0); HEMOGLOBIN 17.4 g/dL (12.0-15.5); MEAN CORPUSCULAR HEMOGLOBIN 32.1 pg (27.0-33.4); MEAN CORPUSCULAR HGB CONC 34.5 g/dL (32.0-36.0); MEAN CORPUSCULAR VOLUME 93 fl (80-97); MONOCYTES % (AUTO) 2.1 % (3-13); PLATELET COUNT 344 10^3/uL (150-450); RED BLOOD COUNT 5.43 10^6/uL (3.72-5.28); RED CELL DISTRIBUTION WIDTH 13.8 % (11.5-14.0); TOTAL CELLS COUNTED % (AUTO) 100 %
[2019-08-20 12:21] LABS: ALBUMIN 5.3 g/dL (3.5-5.0); ALKALINE PHOSPHATASE 72 U/L (38-126); ANION GAP 14 (5-19); ASPARTATE AMINO TRANSFERASE 34 U/L (14-36); BILIRUBIN,DIRECT 0.2 mg/dL (0.0-0.4); BILIRUBIN,TOTAL 0.9 mg/dL (0.2-1.3); BLOOD UREA NITROGEN 16 mg/dL (7-20); CARBON DIOXIDE 20 mmol/L (22-30); CHLORIDE 103 mmol/L (98-107); GLUCOSE 154 mg/dL (75-110); POTASSIUM 4.5 mmol/L (3.6-5.0); TOTAL PROTEIN 8.5 g/dL (6.3-8.2)
[2019-08-20 12:31] LABS: CALCIUM 12.2 mg/dL (8.4-10.2)
[2019-08-20 12:35] LABS: APPEARANCE,URINE CLOUDY; BILIRUBIN,URINE MODERATE (NEGATIVE); CALCIUM OXALATE CRYSTALS,URINE FEW /HPF; COLOR,URINE BROWN; GLUCOSE, URINE NEGATIVE (NEGATIVE); KETONES,URINE TRACE mg/dL (NEGATIVE); LEUKOCYTE ESTERASE,URINE NEGATIVE (NEGATIVE); NITRITE,URINE NEGATIVE (NEGATIVE); PROTEIN,URINE 30 mg/dL (NEGATIVE); URIC ACID CRYSTALS,URINE TOO NUMEROUS TO CNT /HPF; URINE SPECIFIC GRAVITY 1.035
[2019-08-20] MEDS ORDERED: NORMAL SALINE 1000 ML 1,000 ML IV ONE (12:39)
--- NOTE | 2019-08-20 14:36 | RADIOLOGY REPORT (SQ) ---
EXAM DESCRIPTION: CT ABD/PELVIS WITH IV ONLY IMAGES COMPLETED DATE/TIME: 08/20/2019 2:24 pm REASON FOR STUDY: diverticulitis COMPARISON: None. TECHNIQUE: CT scan of the abdomen and pelvis performed using helical scanning technique with dynamic intravenous contrast injection. No oral contrast. Images reviewed with lung, soft tissue, and bone windows. Reconstructed coronal and sagittal MPR images reviewed. Delayed images for evaluation of the urinary system also acquired. All images stored on PACS. All CT scanners at this facility use dose modulation, iterative reconstruction, and/or weight based d osing when appropriate to reduce radiation dose to as low as reasonably achievable (ALARA). [facility]: Dose Right [facility]: CareDose [facility]: Dose Right [facility]: Teradose 4D [facility]: Simple Star CONTRAST TYPE AND DOSE: contrast/concentration: Isovue 350.00 mg/ml; Total Contrast Delivered: 100.0 ml; Total Saline Delivered: 68.0 ml RENAL FUNCTION: GFR > 60. RADIATION DOSE: CT Rad equipment meets quality standard of care and radiation dose reduction techniq ues were employed. CTDIvol: 13.2 - 17.2 mGy. DLP: 1762 mGy-cm.. LIMITATIONS: None. FINDINGS: LOWER CHEST: Hiatal hernia. LIVER: Normal size. No masses. No dilated ducts. SPLEEN: Normal size. No focal lesions. PANCREAS: No masses. No significant calcifications. No adjacent inflammation or peripancreatic fluid collections. Pancreatic duct not dilated. GALLBLADDER: No identified stones by CT criteria. No inflammatory changes to suggest cholecystitis. ADRENAL GLANDS: No significant masses or asymmetry. RIGHT KIDNEY AND URETER: No solid masses. No significant calcifications. No hydronephrosis or hyd roureter. LEFT KIDNEY AND URETER: No solid masses. No significant calcifications. No hydronephrosis or hydr oureter. AORTA AND VESSELS: No aneurysm. No dissection. Renal arteries, SMA, celiac without stenosis. RETROPERITONEUM: No retroperitoneal adenopathy, hemorrhage or masses. BOWEL AND PERITONEAL CAVITY: Diverticulosis descending and sigmoid colon. No inflammatory changes. No ascites. APPENDIX: Normal. PELVIS: No mass. No free fluid. Normal bladder. ABDOMINAL WALL: No masses. No hernias. BONES: No significant or acute findings. OTHER: No other significant finding. IMPRESSION: Diverticulosis without evidence of diverticulitis. TECHNICAL DOCUMENTATION: JOB ID: [id number] Quality ID # [id number]: Final reports with documentation of one or more dose reduction techniques (e.g., Au tomated exposure control, adjustment of the mA and/or kV according to patient size, use of iterative reconstruction technique) 2010 [employer]- All Rights Reserved Reading location - IP/workstation name: [email or web address]
[2019-08-20] MEDS ORDERED: DICYCLOMINE HCL INJ 20 MG/2 ML AMPULE IM ONE (15:02)
[2019-08-20 15:57] VITALS: BP 172/92
== END 2019-08-20 15:58 | disposition home or self-care (01) ==
LOC: ER 11:35
DX: R10.32 Left lower quadrant pain (principal); E83.52 Hypercalcemia; R11.2 Nausea with vomiting, unspecified; R10.814 Left lower quadrant abdominal tenderness; J44.9 Chronic obstructive pulmonary disease, unspecified; I10 Essential (primary) hypertension; Z87.19 Personal history of other diseases of the digestive system
CPT/HCPCS: 96376; 99284; 96361; 96374; 96375; 36415; 83690; 85025; 80053; 81001; 74177; J0500; J2270; J2405; J7030

== ENCOUNTER 2019-09-07 22:49 | Emergency (ER) | payer MEDICAID ==
[2019-09-07] MEDS ORDERED: DIPH/PERTUSS(ACELL)/TETANUS VAC/PF 0.5 ML SYR (>=10YO) IM ONE (23:20)
[2019-09-07] MEDS ORDERED: ACETAMINOPHEN 325 MG TABLET PO ONE (23:20)
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
[2019-09-08] MEDS ORDERED: DIPH/PERTUSS(ACELL)/TETANUS VAC/PF 0.5 ML SYR (>=10YO) IM ONE (04:45)
[2019-09-08] MEDS ORDERED: ACETAMINOPHEN 325 MG TABLET PO ONE (04:45)
[2019-09-08] MEDS ORDERED: OXYCODONE-ACETAMINOPHEN 5-325 MG TABLET PO ONE ×2 (06:02→07:22)
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
[2019-09-08 08:54] VITALS: BP 126/70
== END 2019-09-08 08:54 | disposition home or self-care (01) ==
LOC: ER 22:49
DX: S01.91XA Laceration without foreign body of unspecified part of head, initial encounter (principal); S30.1XXA Contusion of abdominal wall, initial encounter; M54.6 Pain in thoracic spine; M54.9 Dorsalgia, unspecified; R07.81 Pleurodynia; M25.571 Pain in right ankle and joints of right foot; Y09 Assault by unspecified means; F17.200 Nicotine dependence, unspecified, uncomplicated; I10 Essential (primary) hypertension; J44.9 Chronic obstructive pulmonary disease, unspecified
CPT/HCPCS: 99283; 90471; 73610; 71101; 72070; 70450; 74177; 90715; J3490